=== PATIENT | female | born 1950 | race Caucasian/White ===

== ENCOUNTER → 2016-12-05 | Outpatient (CLI) | payer MEDICARE | LOC: MAMMO 13:02 | DX: Z12.31 Encounter for screening mammogram for malignant neoplasm of breast (principal) | CPT/HCPCS: G0202 ==

== ENCOUNTER → 2017-01-18 | Outpatient (CLI) | payer MEDICARE | LOC: LAB 14:17 | DX: Z12.11 Encounter for screening for malignant neoplasm of colon (principal); K63.5 Polyp of colon; E78.2 Mixed hyperlipidemia; K90.9 Intestinal malabsorption, unspecified ==

== ENCOUNTER → 2017-01-23 | Outpatient (CLI) | payer MEDICARE | LOC: LAB 11:21 | DX: Z12.11 Encounter for screening for malignant neoplasm of colon (principal) ==

== ENCOUNTER → 2018-02-07 | Outpatient (CLI) | payer MEDICARE | LOC: MAMMO 02-05 14:30 | DX: Z12.31 Encounter for screening mammogram for malignant neoplasm of breast (principal) ==

== ENCOUNTER → 2019-01-28 | Outpatient (CLI) | payer MEDICARE ==
[2019-01-28 11:01] LABS: BASO # 0.1 (0.02-0.10); EOS # 0.3 (0.04-0.40); EOS % 4.2 % (1.0-5.0); HEMATOCRIT 43.2 % (37.0-47.0); HEMOGLOBIN 14.8 g/dL (12.5-16.0); LYMPH# 2.1 (1.50-4.00); MEAN CELL VOLUME 89 fl (78-100); MEAN CORPUSCULAR HEMOGLOBIN 31 pg (27-31); MEAN CORPUSCULAR HGB CONC 34 g/dL (33-37); MEAN PLATELET VOLUME 9.6 fl (7.4-10.4); MONO # 0.6 (0.20-0.80); NEU # 4.2 (1.40-6.50); PLATELET COUNT 196 K/mm3 (130-400); RED BLOOD COUNT 4.84 M/mm3 (4.10-5.30); RED CELL DISTRIBUTION WIDTH 13.9 % (11.5-14.5); WHITE BLOOD COUNT 7.2 K/mm3 (4.8-10.8)
[2019-01-28 11:40] LABS: ALBUMIN 4.3 g/dL (3.4-4.8); POTASSIUM 4.5 mmol/L (3.5-5.1)
[2019-01-28 11:41] LABS: CALCIUM 10.7 mg/dL (8.3-10.5)
[2019-01-28 11:42] LABS: TOTAL PROTEIN 7.6 g/dL (6.2-8.1)
[2019-01-28 11:44] LABS: TOTAL BILIRUBIN 0.7 mg/dL (0.2-1.2)
[2019-01-28 12:11] LABS: ERYTHROCYTE SEDIMENTATION RATE 11 mm/hr (0-30)
== END ==
LOC: LAB 10:48
PROVIDERS: Internal Medicine
DX: Z12.11 Encounter for screening for malignant neoplasm of colon (principal); K63.5 Polyp of colon; E78.2 Mixed hyperlipidemia; K90.9 Intestinal malabsorption, unspecified

== ENCOUNTER → 2019-02-13 | Outpatient (CLI) | payer MEDICARE | LOC: LAB 13:23 | DX: Z12.11 Encounter for screening for malignant neoplasm of colon (principal); K63.5 Polyp of colon; K90.9 Intestinal malabsorption, unspecified ==

== ENCOUNTER → 2019-02-18 | Outpatient (CLI) | payer MEDICARE | LOC: RAD 09:57 → MAMMO 10:45 | DX: Z13.820 Encounter for screening for osteoporosis (principal); Z12.31 Encounter for screening mammogram for malignant neoplasm of breast; M85.88 Other specified disorders of bone density and structure, other site ==

== ENCOUNTER → 2019-02-18 | Outpatient (CLI) | payer MEDICARE | LOC: MAMMO 09:55 | DX: Z12.31 Encounter for screening mammogram for malignant neoplasm of breast (principal) ==

== ENCOUNTER → 2020-08-09 | Outpatient (CLI) | payer MEDICARE ==
[2020-08-09 16:40] LABS: EOS # 0.4 (0.04-0.40); EOS % 4.7 % (1.0-5.0); HEMATOCRIT 42.1 % (37.0-47.0); HEMOGLOBIN 14.2 g/dL (12.5-16.0); LYMPH# 2.7 (1.50-4.00); MEAN CELL VOLUME 90 fl (78-100); MEAN CORPUSCULAR HEMOGLOBIN 30 pg (27-31); MEAN CORPUSCULAR HGB CONC 34 g/dL (33-37); MEAN PLATELET VOLUME 9.4 fl (7.4-10.4); MONO # 0.9 (0.20-0.80); NEU # 4.5 (1.40-6.50); PLATELET COUNT 240 K/mm3 (130-400); RED BLOOD COUNT 4.68 M/mm3 (4.10-5.30); WHITE BLOOD COUNT 8.6 K/mm3 (4.8-10.8)
[2020-08-09 16:49] LABS: ALBUMIN 4.2 g/dL (3.4-4.8); POTASSIUM 4.5 mmol/L (3.5-5.1)
[2020-08-09 16:50] LABS: CALCIUM 10.4 mg/dL (8.3-10.5)
[2020-08-09 16:51] LABS: TOTAL PROTEIN 7.2 g/dL (6.2-8.1)
[2020-08-09 16:53] LABS: TOTAL BILIRUBIN 0.8 mg/dL (0.2-1.2)
[2020-08-09 18:18] LABS: ERYTHROCYTE SEDIMENTATION RATE 27 mm/hr (0-30)
== END ==
LOC: LAB 16:23
PROVIDERS: Internal Medicine
DX: Z12.11 Encounter for screening for malignant neoplasm of colon (principal); M85.80 Other specified disorders of bone density and structure, unspecified site; E78.2 Mixed hyperlipidemia

== ENCOUNTER → 2020-08-12 | Outpatient (CLI) | payer MEDICARE | LOC: MAMMO 11:00 | DX: Z12.31 Encounter for screening mammogram for malignant neoplasm of breast (principal) ==

== ENCOUNTER → 2020-09-02 | Outpatient (CLI) | payer MEDICARE ==
[2020-09-02 13:53] LABS: POTASSIUM 4.2 mmol/L (3.5-5.1)
[2020-09-02 13:55] LABS: CALCIUM 10.1 mg/dL (8.3-10.5)
== END ==
LOC: LAB 13:26
PROVIDERS: Internal Medicine
DX: E86.0 Dehydration (principal)

== ENCOUNTER → 2021-11-15 | Outpatient (CLI) | payer MEDICARE ==
[2021-11-15 09:16] LABS: BASO # 0.05 K/mm3 (0.02-0.10); EOS # 0.27 K/mm3 (0.04-0.40); EOS % 4.3 % (1.0-5.0); HEMATOCRIT 43.2 % (37.0-47.0); HEMOGLOBIN 14.7 g/dL (12.5-16.0); LYMPH# 1.65 K/mm3 (1.50-4.00); MEAN CELL VOLUME 89 fl (78-100); MEAN CORPUSCULAR HEMOGLOBIN 30 pg (27-31); MEAN CORPUSCULAR HGB CONC 34 g/dL (33-37); MEAN PLATELET VOLUME 9.4 fl (7.4-10.4); MONO # 0.52 K/mm3 (0.20-0.80); PLATELET COUNT 189 K/mm3 (130-400); RED BLOOD COUNT 4.84 M/mm3 (4.10-5.30); WHITE BLOOD COUNT 6.3 K/mm3 (4.8-10.8)
[2021-11-15 09:26] LABS: ALBUMIN 4.1 g/dL (3.4-4.8)
[2021-11-15 09:27] LABS: CALCIUM 9.8 mg/dL (8.3-10.5)
[2021-11-15 09:28] LABS: TOTAL PROTEIN 7.1 g/dL (6.2-8.1)
[2021-11-15 09:30] LABS: TOTAL BILIRUBIN 0.9 mg/dL (0.2-1.2)
[2021-11-15 10:45] LABS: ERYTHROCYTE SEDIMENTATION RATE 11 mm/hr (0-30)
== END ==
LOC: LAB 08:57
PROVIDERS: Internal Medicine
DX: Z00.00 Encounter for general adult medical examination without abnormal findings (principal); Z12.11 Encounter for screening for malignant neoplasm of colon; Z12.31 Encounter for screening mammogram for malignant neoplasm of breast; Z23 Encounter for immunization; K63.5 Polyp of colon; M85.80 Other specified disorders of bone density and structure, unspecified site; E78.2 Mixed hyperlipidemia

== ENCOUNTER → 2021-12-20 | Outpatient (CLI) | payer MEDICARE | LOC: MAMMO 08:26 | DX: Z12.31 Encounter for screening mammogram for malignant neoplasm of breast (principal) ==

== ENCOUNTER → 2021-12-20 | Outpatient (CLI) | payer MEDICARE | LOC: MAMMO 08:27 | DX: M85.88 Other specified disorders of bone density and structure, other site (principal) ==

== ENCOUNTER 2022-04-29 10:14 | Emergency (ER) | payer MEDICARE ==
[~2022-04-29] VITALS: Ht 167.6 cm; Wt 96.8 kg
[2022-04-29] MEDS ORDERED: GOOD NEIGHBOR200 M1 PO (10:21)
[2022-04-29 11:09] LABS: BASO # 0.02 K/mm3 (0.02-0.10); HEMATOCRIT 45.4 % (37.0-47.0); LYMPH# 0.83 K/mm3 (1.50-4.00); MEAN CELL VOLUME 88 fl (78-100); MEAN CORPUSCULAR HEMOGLOBIN 31 pg (27-31); MEAN CORPUSCULAR HGB CONC 35 g/dL (33-37); MEAN PLATELET VOLUME 10.1 fl (7.4-10.4); MONO # 0.97 K/mm3 (0.20-0.80); NEU # 11.67 K/mm3 (1.40-6.50); PLATELET COUNT 141 K/mm3 (130-400); RED BLOOD COUNT 5.14 M/mm3 (4.10-5.30); RED CELL DISTRIBUTION WIDTH 13.3 % (11.5-14.5); WHITE BLOOD COUNT 13.5 K/mm3 (4.8-10.8)
[2022-04-29 11:16] LABS: ALBUMIN 4.2 g/dL (3.4-4.8)
[2022-04-29 11:17] LABS: POTASSIUM 3.8 mmol/L (3.5-5.1)
[2022-04-29 11:18] LABS: CALCIUM 10.2 mg/dL (8.3-10.5)
[2022-04-29 11:19] LABS: TOTAL PROTEIN 7.7 g/dL (6.2-8.1)
[2022-04-29 11:27] LABS: STREP SCREEN NEGATIVE (NEGATIVE)
[2022-04-29 11:37] LABS: TOTAL BILIRUBIN 0.9 mg/dL (0.2-1.2)
[2022-04-29] MEDS ORDERED: PREDNISOLONE SO10 MG PO (12:27)
[2022-04-29] MEDS ORDERED: PAXLOVID CO-PA1 EACH PO (12:27)
[2022-04-29] MEDS ORDERED: ZITHROMAX 250M250 MG PO (12:27)
[2022-04-29] MEDS ORDERED: PROMETH-CODEIN 65 ML PO (12:27)
[2022-04-29] MEDS ORDERED: AEROCHAMBER MI1 EACH MC (12:27)
[2022-04-29] MEDS ORDERED: PROAIR HFA0.09 MG/AC IH (12:27)
[2022-04-29 12:50] VITALS: BP 151/80
== END 2022-04-29 12:51 | disposition home or self-care (01) ==
LOC: ED 10:14
PROVIDERS: Family Medicine
DX: U07.1 COVID-19 (principal); R05.9 Cough, unspecified; R06.02 Shortness of breath

== ENCOUNTER → 2023-01-23 | Outpatient (CLI) | payer MEDICARE ==
[~2023-01-23] MED LIST: AEROCHAMBER MI1 EACH MC; GOOD NEIGHBOR200 M1 PO; PAXLOVID CO-PA1 EACH PO; PREDNISOLONE SO10 MG PO; PROAIR HFA0.09 MG/AC IH; PROMETH-CODEIN 65 ML PO; ZITHROMAX 250M250 MG PO
== END ==
LOC: MAMMO 10:00
DX: Z12.31 Encounter for screening mammogram for malignant neoplasm of breast (principal)

== ENCOUNTER → 2023-04-12 | Outpatient (CLI) | payer MEDICARE ==
[2023-04-12 09:18] LABS: BASO # 0.07 K/mm3 (0.02-0.10); EOS # 0.29 K/mm3 (0.04-0.40); EOS % 3.9 % (1.0-5.0); HEMATOCRIT 44.2 % (37.0-47.0); HEMOGLOBIN 15.1 g/dL (12.5-16.0); LYMPH# 1.83 K/mm3 (1.50-4.00); MEAN CELL VOLUME 91 fl (78-100); MEAN CORPUSCULAR HEMOGLOBIN 31 pg (27-31); MEAN CORPUSCULAR HGB CONC 34 g/dL (33-37); MEAN PLATELET VOLUME 9.5 fl (7.4-10.4); MONO # 0.58 K/mm3 (0.20-0.80); NEU # 4.74 K/mm3 (1.40-6.50); PLATELET COUNT 225 K/mm3 (130-400); RED BLOOD COUNT 4.84 M/mm3 (4.10-5.30); WHITE BLOOD COUNT 7.5 K/mm3 (4.8-10.8)
[2023-04-12 09:23] LABS: ALBUMIN 4.3 g/dL (3.4-4.8)
[2023-04-12 09:24] LABS: CALCIUM 9.9 mg/dL (8.3-10.5)
[2023-04-12 09:26] LABS: TOTAL PROTEIN 7.2 g/dL (6.2-8.1)
[2023-04-12 09:27] LABS: TOTAL BILIRUBIN 0.8 mg/dL (0.2-1.2)
[2023-04-12 09:32] LABS: MAGNESIUM 2.07 mg/dL (1.60-2.60)
== END ==
LOC: LAB 09:03
PROVIDERS: Internal Medicine
DX: Z12.11 Encounter for screening for malignant neoplasm of colon (principal); M85.80 Other specified disorders of bone density and structure, unspecified site; E78.2 Mixed hyperlipidemia; R73.9 Hyperglycemia, unspecified; R20.2 Paresthesia of skin

== ENCOUNTER → 2023-08-10 | Outpatient (CLI) | payer MEDICARE | LOC: LAB 09:13 | DX: E78.2 Mixed hyperlipidemia (principal) ==

== ENCOUNTER → 2023-09-27 | Outpatient (CLI) | payer MEDICARE ==
[2023-09-27 09:13] LABS: ALBUMIN 4.3 g/dL (3.4-4.8)
[2023-09-27 09:15] LABS: TOTAL PROTEIN 7.1 g/dL (6.2-8.1)
[2023-09-27 09:17] LABS: TOTAL BILIRUBIN 0.7 mg/dL (0.2-1.2)
== END ==
LOC: LAB 08:49
PROVIDERS: Internal Medicine
DX: E78.2 Mixed hyperlipidemia (principal)

== ENCOUNTER → 2024-02-04 | Outpatient (CLI) | payer MEDICARE | LOC: MAMMO 09:17 | DX: Z12.31 Encounter for screening mammogram for malignant neoplasm of breast (principal); Z13.820 Encounter for screening for osteoporosis ==

== ENCOUNTER → 2024-02-04 | Outpatient (CLI) | payer MEDICARE ==
[2024-02-04 10:01] LABS: BASO # 0.04 K/mm3 (0.02-0.10); EOS # 0.12 K/mm3 (0.04-0.40); EOS % 1.6 % (1.0-5.0); HEMATOCRIT 43.4 % (37.0-47.0); HEMOGLOBIN 14.7 g/dL (12.5-16.0); LYMPH# 1.92 K/mm3 (1.50-4.00); MEAN CELL VOLUME 93 fl (78-100); MEAN CORPUSCULAR HEMOGLOBIN 32 pg (27-31); MEAN CORPUSCULAR HGB CONC 34 g/dL (33-37); MEAN PLATELET VOLUME 9.6 fl (7.4-10.4); MONO # 0.57 K/mm3 (0.20-0.80); NEU # 4.75 K/mm3 (1.40-6.50); PLATELET COUNT 213 K/mm3 (130-400); RED BLOOD COUNT 4.67 M/mm3 (4.10-5.30); RED CELL DISTRIBUTION WIDTH 13.1 % (11.5-14.5); WHITE BLOOD COUNT 7.4 K/mm3 (4.8-10.8)
[2024-02-04 10:10] LABS: ALBUMIN 4.4 g/dL (3.4-4.8)
[2024-02-04 10:11] LABS: CALCIUM 10.5 mg/dL (8.3-10.5)
[2024-02-04 10:12] LABS: TOTAL PROTEIN 7.2 g/dL (6.2-8.1)
[2024-02-04 10:14] LABS: TOTAL BILIRUBIN 0.8 mg/dL (0.2-1.2)
[2024-02-04 10:19] LABS: MAGNESIUM 2.07 mg/dL (1.60-2.60)
== END ==
LOC: LAB 09:23
PROVIDERS: Internal Medicine
DX: Z12.11 Encounter for screening for malignant neoplasm of colon (principal); M85.80 Other specified disorders of bone density and structure, unspecified site; E78.2 Mixed hyperlipidemia; R73.9 Hyperglycemia, unspecified